=== PATIENT | female | born 1985 | race American Indian/Alaskan Native ===

== ENCOUNTER 2017-11-26 06:22 | Day surgery (SDC) | payer MEDICAID ==
[2017-11-26] MEDS ORDERED: REGLAN PO NR (07:00)
[2017-11-26] MEDS ORDERED: VERSED IV NR (07:00)
[2017-11-26] MEDS ORDERED: PEPCID PO NR (07:00)
[2017-11-26] MEDS ORDERED: NACL 0.9% 1000 ML 1,000 ML IV SCH (07:00)
--- NOTE | 2017-11-26 07:14 | Anesthesia Day of Surgery ---
Anesthesia Day of Surgery - Day of Surgery Patient Examined: Yes Patient H&P Reviewed: Yes Patient is NPO: Yes
--- NOTE | 2017-11-26 07:14 | Anesthesia Consultation ---
Anesthesia Consult and Med Hx Date of service: 11/26/17 - Airway Anesthetic Teeth Evaluation: Good ROM Head & Neck: Adequate Mental/Hyoid Distance: Adequate Mallampati Class: Class II Intubation Access Assessment: Probably Good - Pulmonary Exam CTA: Yes - Cardiac Exam Cardiac Exam: RRR - Pre-Operative Health Status ASA Pre-Surgery Classification: ASA3 Proposed Anesthetic Plan: General - Pulmonary Hx Smoking: No Hx Asthma: Yes (SINCE CHILDHOOD - DOESN'T TAKE MEDICINES) SOB: No Hx Sleep Apnea: No - Cardiovascular System Hx Hypertension: Yes (DIAGNOSED IN 2016) Hx Heart Attack/AMI: No Hx Angina: No Hx Heart Murmur: No Hx Peripheral Vascular Disease: No - Central Nervous System Hx Seizures: No Hx Back Pain: Yes (STATES IT IS NEUROPATHY) Hx Psychiatric Problems: No - Endocrine Hx Renal Disease: No Hx Non-Insulin Dependent Diabetes: Yes (gestational diabetes) Hx Hypothyroidism: No Hx Hyperthyroidism: No - Hematic Hx Anemia: Yes (YEARS AGO) Hx Sickle Cell Disease: No - Other Systems 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
--- NOTE | 2017-11-26 07:19 | Short Stay Summary ---
Short Stay Documentation Date of service: 11/26/17 Narrative H&P: Pt is a 32yo BF LMP 11/03 17 presents for permanent sterilization - History Principal diagnosis: Desires permanent sterilization H&P: obtained from office Past Medical History: diabetes, hypertension, other (asthma) Past Surgical History: Social history: no significant social history, - Allergies and Medications Current Medications: Allergies No Known Allergies Allergy (Verified 08/25/16 10:11) Home Medications Medication Instructions Recorded Confirmed Last Taken Type AtorvaSTATin [Lipitor] 80 mg PO QHS 11/24/17 11/24/17 Unknown History Gabapentin [Neurontin] 100 mg PO Q8HR PRN 11/24/17 11/24/17 Unknown History Insulin Glargine,Hum.rec.anlog 20 unit SQ QHS 11/24/17 11/24/17 Unknown History [Basaglar Kwikpen U-100] Insulin Lispro Protamin/Lispro 6 unit SQ TID 11/24/17 11/24/17 Unknown History [Humalog Mix 50-50 Vial] Lisinopril [Zestril TAB] 2.5 mg PO QDAY 11/24/17 11/24/17 Unknown History metFORMIN [Glucophage] 500 mg PO BID 11/24/17 11/24/17 Unknown History Active Medications Sodium Chloride (Nacl 0.9% 1000 Ml) 1,000 mls @ 75 mls/hr IV DIRECT RIMMA Cefazolin Sodium (Ancef/Sterile Water 2 Gm/20 Ml) 2 gm in 20 mls @ 80 mls/hr IV PREOP NR PRN Reason: Protocol Midazolam HCl (Versed) 2 mg IV PREOP NR Stop: 11/26/17 23:59 Morphine Sulfate (Morphine) 2 mg IV Q10MIN PRN PRN Reason: Pain, Moderate (4-6) Ondansetron HCl (Zofran) 4 mg IV ONCE PRN PRN Reason: Nausea And Vomiting Oxycodone/Acetaminophen (Percocet 5/325) 1 tab PO ONCE PRN PRN Reason: Pain, Moderate (4-6) - Physical exam General appearance: no acute distress Integumentary: no rash HEENT: Atraumatic Lungs: Clear to auscultation Heart: Regular rate Gastrointestinal: normal Female Genitourinary: deferred Rectal Exam: deferred Extremities: no ischemia Neurological: Normal gait - Brief post op/procedure progress note Date of procedure: 11/26/17 Pre-op diagnosis: Desires permanent sterilization Post-op diagnosis: same Procedure: Laproscopic Bilateral Tubal Ligation Anesthesia: GETA Findings: Normal uterus. Normal tubes and ovaries bilaterally. Surgeon: ANNE MARIE RIVERA Estimated blood loss: minimal Pathology: none Condition: stable - Hospital course Hospital course: Unremarkable. - Disposition Condition at discharge: Good Disposition: DC-01 TO HOME OR SELFCARE - Discharge Diagnoses (1) Encounter for sterilization Status: Resolved Short Stay Discharge Plan Activity: no restrictions Diet: regular Wound: open to air, keep clean and dry Follow up with: QUITA WHALEN MD [Primary Care Provider] - 14 Days ANNE MARIE RIVERA MD [Staff Physician] - 14 Days Prescriptions: HYDROcodone/APAP 5-325 [[place] 5/325] 1 each PO Q6HR PRN #20 tablet PRN Reason: Pain
[2017-11-26] MEDS ORDERED: MARCAINE 0.5% INFILTRATI ONE ×2 (07:28→08:24)
[2017-11-26] MEDS ORDERED: DIPRIVAN 10 MG/ML IV ONE (07:31)
[2017-11-26] MEDS ORDERED: DILAUDID ONE (07:32)
[2017-11-26 08:00] LABS: Hematocrit 40.2 % (30.3-42.9); Hemoglobin 12.9 gm/dl (10.1-14.3)
[2017-11-26] MEDS ORDERED: PERCOCET 5/325 PO PRN (08:00)
[2017-11-26] MEDS ORDERED: MORPHINE IV PRN (08:00)
[2017-11-26] MEDS ORDERED: ANCEF/STERILE WATER 2 GM/20 ML 2 GM/20 ML SYRINGE IV NR (08:00)
[2017-11-26] MEDS ORDERED: ZOFRAN IV PRN (08:00)
[2017-11-26] MEDS ORDERED: NEOSTIGMINE ONE (08:15)
[2017-11-26] MEDS ORDERED: ZEMURON IV ONE (08:15)
[2017-11-26] MEDS ORDERED: ZOFRAN ONE (08:15)
[2017-11-26] MEDS ORDERED: XYLOCAINE MPF 2% ONE ×2 (08:15)
[2017-11-26] MEDS ORDERED: ROBINUL ONE ×2 (08:16)
[2017-11-26] MEDS ORDERED: NACL 0.9% IR ONE (08:24)
--- NOTE | 2017-11-26 08:52 | Operative Report ---
Operative Report Operative Report: PREOPERATIVE DIAGNOSIS: Desires permanent sterilization POSTOPERATIVE DIAGNOSIS: Same OPERATIVE PROCEDURE: Laparoscopic bilateral tubal ligation. SURGEON: Tomy Dejesus MD ANESTHESIA: Gen. endotracheal intubation ANESTHESIOLOGIST: Dr. Pineda ESTIMATED BLOOD LOSS: Minimal FINDINGS: Normal uterus. Normal tubes and ovaries bilaterally. COMPLICATIONS: None COUNTS: Correct x3. PROCEDURE: After the patient was correctly identified and after general anesthesia was administered, the patient was prepped and draped in usual sterile fashion and placed in dorsal lithotomy position. First, the bladder was emptied using a straight catheter. Next, a speculum was placed in the vaginal vault and the anterior lip of the cervix was grasped using a single- tooth tenaculum. The uterine manipulator was then placed and the tenaculum and speculum were removed. Attention was then turned to the abdomen where first a periumbilical incision was made using a skin knife, and the Optiview trocar was inserted under direct visualization. After an adequate amount of abdominal insufflation, visualization of the pelvic organs found the uterus to be normal, and the tubes and ovaries to be normal bilaterally. Next, the left fallopian tube was grasped using the Kleppingers, and after identifying the fimbriated end of the left tube, this tube was cauterized in 3 continuous [address] along the proximal portion of the left tube. The same procedure was performed on the right fallopian tube after first identifying the fimbriated end of the right tube. This tube was also cauterized in 3 continuous places along the proximal portion of the right tube. At this point, the procedure was then considered complete. All instruments were removed from the abdomen. The abdomen was deflated and the periumbilical incision was closed using 0 Vicryl suture in a [id number] configuration on the fascia, followed by 4-0 Monocryl suture in subcuticular fashion on the skin. The incision was also infiltrated using 0.5% Marcaine solution. The uterine manipulator was removed. The patient tolerated the procedure well and was transferred to recovery room stable condition.
--- NOTE | 2017-11-26 09:09 | Post Anesthesia Evaluation ---
- Post Anesthesia Evaluation Patient Participated: Yes Airway Patent: Yes Stable Respiratory Function: Yes Nausea/Vomiting: No Temp > 96.8F: Yes Pain Manageable: Yes Adequeate Hydration: Yes Anesthesia Complications: No Block Receding Appropriately: Not Applicable Patient on Ventilator: No
[2017-11-26 10:18] VITALS: BP 130/82
== END 2017-11-26 10:45 | disposition home or self-care (01) ==
LOC: OR 06:22
PROVIDERS: ATTEND Obstetrics & Gynecology
DX: Z30.2 Encounter for sterilization (principal); I10 Essential (primary) hypertension; E11.9 Type 2 diabetes mellitus without complications; J45.998 Other asthma; G62.9 Polyneuropathy, unspecified; E66.9 Obesity, unspecified; Z68.42 Body mass index [BMI] 45.0-49.9, adult; Z79.4 Long term (current) use of insulin; Z79.899 Other long term (current) drug therapy; Z98.890 Other specified postprocedural states
CPT/HCPCS: 36415; 58670; 81025; 82962; 85014; 85018; J0690; J1170; J2250; J2270; J2405; J2704; J2710; J7030

== ENCOUNTER 2020-09-05 19:48 | Emergency (ER) | payer MEDICAID ==
--- NOTE | 2020-09-05 21:02 | Event Note ---
ED Screening Note Date of service: 09/05/20 Time: 21:01 ED Screening Note: Pt complains of RUQ pain and N/V x 3 days suspects 12 week denies vaginal bleeding This initial assessment/diagnostic orders/clinical plan/treatment(s) is/are subject to change based on patients health status, clinical progression and re- assessment by fellow clinical providers in the ED. Further treatment and workup at subsequent clinical providers discretion. Patient/guardian urged not to elope from the ED as their condition may be serious if not clinically assessed and managed. Initial orders include: labs RUQ US
[2020-09-05 21:28] LABS: Basophils % (Auto) 0.1 % (0.0-1.8); Eosinophils % (Auto) 0.4 % (0.0-4.3); Hematocrit 37.2 % (30.3-42.9); Hemoglobin 12.6 gm/dl (10.1-14.3); Lymphocytes # (Auto) 1.1 K/mm3 (1.2-5.4); Lymphocytes % (Auto) 14.1 % (13.4-35.0); Mean Corpuscular HGB Conc 34 % (30-34); Mean Corpuscular Volume 95 fl (79-97); Monocytes # (Auto) 0.5 K/mm3 (0.0-0.8); Monocytes % (Auto) 6.6 % (0.0-7.3); Platelet Count 233 K/mm3 (140-440); Red Blood Count 3.91 M/mm3 (3.65-5.03); Red Cell Distribution Width 13.3 % (13.2-15.2)
[2020-09-05 21:51] LABS: Alanine Aminotransferase 16 units/L (7-56); Albumin 3.7 g/dL (3.9-5); Blood Urea Nitrogen 5 mg/dL (7-17); Calcium 9.2 mg/dL (8.4-10.2); Hemolysis Index 2
[2020-09-05 21:54] LABS: BUN/Creatinine Ratio 8
== END 2020-09-05 21:02 | disposition left against medical advice (07) ==
LOC: ED 19:48
DX: R42 Dizziness and giddiness (principal); Z53.21 Procedure and treatment not carried out due to patient leaving prior to being seen by health care provider
CPT/HCPCS: 36415; 80053; 83690; 84702; 85025